=== PATIENT | female | born 1995 | race Two or more races ===

== ENCOUNTER 2017-04-11 08:51 | Emergency (ER) | payer MEDICAID | END 2017-04-11 10:40 | disposition left against medical advice (07) | LOC: ER 08:51 | DX: Z53.21 Procedure and treatment not carried out due to patient leaving prior to being seen by health care provider (principal) ==

== ENCOUNTER 2019-02-01 03:16 | Emergency (ER) | payer MEDICAID ==
[~2019-02-01] VITALS: Ht 160 cm; Wt 82.0 kg
[2019-02-01] MEDS ORDERED: DIPHENHYDRAMINE 25MG CAPSULE PO ONE (07:15)
[2019-02-01] MEDS ORDERED: FAMOTIDINE 20MG TABLET PO ONE (07:15)
[2019-02-01] MEDS ORDERED: DEXAMETHASONE 10 MG/ML VIAL IM ONE (07:15)
[2019-02-01 07:40] VITALS: BP 124/70
== END 2019-02-01 07:42 | disposition home or self-care (01) ==
LOC: ER 03:16
DX: T78.40XA Allergy, unspecified, initial encounter (principal); L50.9 Urticaria, unspecified; F14.10 Cocaine abuse, uncomplicated; F17.200 Nicotine dependence, unspecified, uncomplicated; X58.XXXA Exposure to other specified factors, initial encounter
CPT/HCPCS: 96372; 99283; J1100; Q0163